=== PATIENT | female | born 1945 | race Caucasian/White ===

== ENCOUNTER → 2020-06-27 | Outpatient (CLI) | payer MEDICARE ==
[2014-02-25 12:22] VITALS: BP 177/71
[~2020-06-27] MED LIST: DIOVAN160 M1 PO; LASIX20 MG PO; VITAMIN D PO; ZOCOR20 MG PO; ZOLOFT100 MG PO
[2020-06-27 10:58] LABS: POTASSIUM 4.2 mmol/L (3.5-5.1)
[2020-06-27 10:59] LABS: CALCIUM 8.6 mg/dL (8.3-10.5)
== END ==
LOC: LAB 10:36
PROVIDERS: Internal Medicine Interventional Cardiology
DX: Z51.81 Encounter for therapeutic drug level monitoring (principal); R60.0 Localized edema; Z79.899 Other long term (current) drug therapy

== ENCOUNTER → 2020-08-25 | Outpatient (CLI) | payer MEDICARE ==
[2014-02-25 12:22] VITALS: BP 177/71
[2020-08-25 16:20] LABS: EOS # 0.1 (0.04-0.40); HEMATOCRIT 40.4 % (37.0-47.0); HEMOGLOBIN 12.4 g/dL (12.5-16.0); LYMPH# 1.2 (1.50-4.00); MEAN CELL VOLUME 85 fl (78-100); MEAN CORPUSCULAR HEMOGLOBIN 26 pg (27-31); MEAN CORPUSCULAR HGB CONC 31 g/dL (33-37); MEAN PLATELET VOLUME 9.8 fl (7.4-10.4); MONO # 0.5 (0.20-0.80); NEU # 4.5 (1.40-6.50); PLATELET COUNT 248 K/mm3 (130-400); RED BLOOD COUNT 4.76 M/mm3 (4.10-5.30); RED CELL DISTRIBUTION WIDTH 16.2 % (11.5-14.5); WHITE BLOOD COUNT 6.3 K/mm3 (4.8-10.8)
[2020-08-25 16:27] LABS: ALBUMIN 3.7 g/dL (3.4-4.8); POTASSIUM 3.6 mmol/L (3.5-5.1)
[2020-08-25 16:29] LABS: CALCIUM 8.6 mg/dL (8.3-10.5)
[2020-08-25 16:30] LABS: TOTAL PROTEIN 7.3 g/dL (6.2-8.1)
[2020-08-25 16:32] LABS: TOTAL BILIRUBIN 0.5 mg/dL (0.2-1.2)
[2020-08-25 16:37] LABS: MAGNESIUM 1.85 mg/dL (1.60-2.60)
[2020-08-25 17:46] LABS: URINE APPEARANCE HAZY; URINE COLOR YELLOW
[2020-08-25 17:47] LABS: URINE BILIRUBIN NEGATIVE (NEGATIVE); URINE BLOOD NEGATIVE (NEGATIVE); URINE GLUCOSE NEGATIVE (NEGATIVE); URINE KETONE NEGATIVE (NEGATIVE); URINE LEUKOCYTE ESTERASE NEGATIVE (NEGATIVE); URINE NITRATE NEGATIVE (NEGATIVE); URINE PROTEIN(semi-quant) NEGATIVE (NEGATIVE); URINE UROBILINOGEN NORMAL (NORMAL); URINE WBC 0-1 /hpf (0-3)
[2020-08-26 11:53] LABS: ERYTHROCYTE SEDIMENTATION RATE 40 mm/hr (0-30)
== END ==
LOC: LAB 15:35
PROVIDERS: Internal Medicine
DX: Z12.11 Encounter for screening for malignant neoplasm of colon (principal); E11.65 Type 2 diabetes mellitus with hyperglycemia; I48.0 Paroxysmal atrial fibrillation; K90.9 Intestinal malabsorption, unspecified; M85.80 Other specified disorders of bone density and structure, unspecified site